=== PATIENT | female | born 1990 | race African-American/Black ===

== ENCOUNTER 2017-03-17 15:36 | Emergency (ER) | payer SELFPAY ==
[~2017-03-17] VITALS: Ht 167.6 cm; Wt 74.8 kg
[2017-03-17 15:43] VITALS: BP 130/75
== END 2017-03-17 17:17 | disposition home or self-care (01) ==
LOC: ER 15:41
DX: S16.1XXA Strain of muscle, fascia and tendon at neck level, initial encounter (principal); V59.9XXA Occupant (driver) (passenger) of pick-up truck or van injured in unspecified traffic accident, initial encounter; Y93.89 Activity, other specified; Y99.8 Other external cause status; Y92.89 Other specified places as the place of occurrence of the external cause

== ENCOUNTER 2019-06-24 09:20 | Inpatient (IN) | payer SELFPAY ==
[~2019-06-24] VITALS: Ht 167.6 cm; Wt 76.7 kg
[2019-06-24] MEDS ORDERED: SODIUM CHLORIDE 0.9% 1,000 ML IVB ONE (09:35)
[2019-06-24] MEDS ORDERED: FAMOTIDINE (10MG/ML) 2ML VL IV ONE (09:45)
[2019-06-24] MEDS ORDERED: ONDANSETRON HCL 4 MG/2 ML VIAL IV ONE (09:45)
[2019-06-24] MEDS ORDERED: MORPHINE SULF INJ 2 MG/ML SYRINGE 1ML IV ONE (09:45)
[2019-06-24 09:46] LABS: Basophils # (auto) 0 uL; Basophils % (auto) 0.5 % (0.0-2.0); Eosinophils # (auto) 0 uL; Eosinophils % (auto) 0.6 % (0.0-7.0); Hematocrit 40.2 % (36.0-46.0); Hemoglobin 13.3 g/dL (12.2-16.2); Lymphocytes # (auto) 0.5 uL; Lymphocytes % (auto) 11.1 % (10.0-50.0); Mean Corpuscular Hemoglobin 27.6 pg (28.0-32.0); Mean Corpuscular Volume 83.6 fL (80.0-100.0); Monocytes # (auto) 0.6 uL; Monocytes % (auto) 11.6 % (0.0-12.0); Neutrophils # (auto) 3.6 uL; Neutrophils % (auto) 76.2 % (37.0-80.0); Platelet Count (auto) 197 10^3/uL (140-450); Red Blood Cells 4.81 10^6/uL (4.0-5.20); Red Cell Distribution Width 15.9 % (11.8-14.3); White Blood Cell 4.8 10^3/uL (4.4-10.8)
[2019-06-24 09:51] LABS: Urine WBC None Seen /hpf (0 - 5)
[2019-06-24 10:06] LABS: Potassium 3.8 mmol/L (3.5-5.1)
[2019-06-24 10:07] LABS: Urine Bacteria NONE SEEN /hpf (None Seen); Urine Blood Negative /uL (Negative); Urine Specific Gravity 1.004 (1.001-1.035)
[2019-06-24 10:13] LABS: Albumin 3.7 g/dL (3.4-5.0); BUN/Creatinine Ratio 7.4; Bilirubin, Total 0.3 mg/dL (0.2-1.0); Calcium 8.8 mg/dL (8.5-10.1); Total Protein 8.2 g/dL (6.4-8.2)
[2019-06-24] MEDS: SODIUM CHLORIDE 0.9% 1,000 ML IV SCH ×2 (11:40→21:34)
[2019-06-24] MEDS ORDERED: NITROGLYCERIN 0.4 MG SL TAB SL PRN (11:45)
[2019-06-24] MEDS ORDERED: LEVOFLOXACIN 500MG 100 ML IV ONE (11:45)
[2019-06-24] MEDS ORDERED: MORPHINE SULF INJ 2 MG/ML SYRINGE 1ML IV PRN (11:45)
[2019-06-24] MEDS ORDERED: ACETAMINOPHEN 500 MG TAB PO PRN (11:45)
--- NOTE | 2019-06-24 14:15 | NUR ---
Telemetry admit from ER MORENITA MICHAELS admitted to Telemetry unit after SBAR received. Patient oriented to Daisy Silverman RN, unit, room, bed, and unit policies regarding patient care and visiting hours. Patient now on continuous telemetry monitoring, tele box # 15 and telemetry reading on arrival to unit is 65 SR. Patient placed on bedside oxygen, weighed by bed scale and encouraged to call if she needs something. All questions and concerns addressed, patient verbalized understanding. Note: Patient is alert, oriented x4, no acute distress noted, ambulatory, steady gait noted.
[2019-06-24 14:20] VITALS: BP 124/74
[2019-06-24 14:25] VITALS: BP 124/74
[2019-06-24] MEDS: metroNIDAZOLE 500MG/100ML 100 ML IV SCH ×2 (14:28→22:16)
--- NOTE | 2019-06-24 14:35 | NUR ---
Humberto Garcia at bedside for GI Consult. explained to patient Colonoscopy, to be done on Thursday. Patient stated her stomach pain level tolerable at this time.
--- NOTE | 2019-06-24 14:59 | NUR ---
Patient came from the bathroom. Greenish liquid stools noted. Patient is ambulatory.
--- NOTE | 2019-06-24 15:00 | NUR ---
Stool specimen sent to Laboratory.
[2019-06-24] MEDS: traMADol HCL 50 MG TAB PO PRN ×2 (15:10→22:15)
--- NOTE | 2019-06-24 15:10 | NUR ---
Tramadol PO given for abdominal pain.
[2019-06-24 17:00] VITALS: BP 124/74
--- NOTE | 2019-06-24 17:30 | NUR ---
Family member at bedside.
[2019-06-24 22:00] VITALS: BP 124/78
[2019-06-24] MEDS: FAMOTIDINE 20 MG TAB PO SCH (22:17)
[2019-06-25 05:00] VITALS: BP_SYST 119; BP_SYST 143; BP_DIAS 67; BP_DIAS 75
[2019-06-25] MEDS: metroNIDAZOLE 500MG/100ML 100 ML IV SCH ×3 (05:42→22:30)
[2019-06-25] MEDS: SODIUM CHLORIDE 0.9% 1,000 ML IV SCH ×2 (05:43→18:10)
[2019-06-25 08:00] VITALS: BP 133/76
[2019-06-25] MEDS: FAMOTIDINE 20 MG TAB PO SCH ×2 (11:30→22:30)
[2019-06-25] MEDS: LEVOFLOXACIN 500MG 100 ML IV SCH (11:30)
[2019-06-25 11:49] VITALS: BP 119/77
[2019-06-25 17:03] VITALS: BP 120/76
--- NOTE | 2019-06-25 19:30 | NUR ---
Opening Shift Note Assumed care of patient, awake and alert. Boyfriend at bedside. No S/S of distress/SOB noted. Skin clear.Room bathroom does not have a soap dispenser or warm water at sink. Instructed on POC and to call for assist PRN, will continue to monitor for changes Q1hr and PRN.
[2019-06-25 22:00] VITALS: BP 145/79
--- NOTE | 2019-06-25 22:00 | NUR ---
IV infiltrated to R AC. Patient complaining of pain at site as well.Removed IV and placed new IV to L AC 22 Gauge. Tolerated well. Patient states she has not slept much and her roommate moans often due to discomfort as well as the patient next door yelling out often. Asked RAMAN Morales for eye mask and ear plugs and we are out at this time. Sleeping pill given
[2019-06-26] MEDS: TEMAZEPAM 15 MG CAP PO PRN ×2 (00:17→22:19)
[2019-06-26] MEDS: traMADol HCL 50 MG TAB PO PRN ×4 (00:17→22:18)
[2019-06-26] MEDS: SODIUM CHLORIDE 0.9% 1,000 ML IV SCH ×3 (03:34→23:34)
[2019-06-26 05:00] VITALS: BP 139/85
--- NOTE | 2019-06-26 06:00 | NUR ---
New IV strted to Left FA. 22 gauge and infusing fluids per orders. IV to left AC removed due to causing patient pain. No redness or swelling noted. Was going to move patient to another room last night per her request and she ended up sleeping well and didnt want to move after all. No distres at this time.
[2019-06-26] MEDS: metroNIDAZOLE 500MG/100ML 100 ML IV SCH ×3 (06:20→22:18)
[2019-06-26 06:22] LABS: Basophils # (auto) 0 uL; Basophils % (auto) 0.6 % (0.0-2.0); Eosinophils # (auto) 0.2 uL; Eosinophils % (auto) 5.9 % (0.0-7.0); Hematocrit 35.1 % (36.0-46.0); Hemoglobin 11.8 g/dL (12.2-16.2); Lymphocytes # (auto) 1.4 uL; Lymphocytes % (auto) 40.7 % (10.0-50.0); Mean Corpuscular Hemoglobin 28.1 pg (28.0-32.0); Mean Corpuscular Hgb Conc. 33.7 g/dL (32.0-36.0); Mean Corpuscular Volume 83.5 fL (80.0-100.0); Monocytes # (auto) 0.6 uL; Monocytes % (auto) 16.4 % (0.0-12.0); Neutrophils # (auto) 1.2 uL; Neutrophils % (auto) 36.4 % (37.0-80.0); Nucleated Red Blood Cells % 0.1 %; Platelet Count (auto) 169 10^3/uL (140-450); Red Cell Distribution Width 15.5 % (11.8-14.3); White Blood Cell 3.4 10^3/uL (4.4-10.8)
[2019-06-26 06:26] LABS: INR 1.01 (0.9-1.15); Partial Thromboplastin Time 30.8 sec (23.64-32.05)
[2019-06-26 06:28] LABS: Calcium 7.7 mg/dL (8.5-10.1); Potassium 3.6 mmol/L (3.5-5.1)
[2019-06-26 06:30] LABS: BUN/Creatinine Ratio 4.6
[2019-06-26 08:00] VITALS: BP 123/83
[2019-06-26 09:06] VITALS: BP 123/83
[2019-06-26] MEDS: FAMOTIDINE 20 MG TAB PO SCH ×2 (09:50→22:19)
[2019-06-26] MEDS: LEVOFLOXACIN 500MG 100 ML IV SCH (09:50)
[2019-06-26] MEDS ORDERED: GOLYTELY 4L KIT PO ONE (12:00)
[2019-06-26 13:08] VITALS: BP 130/87
--- NOTE | 2019-06-26 14:25 | NUR ---
Estimated needs based on AJBW 63.5 kg for wt. maintenance 6645-7587 kcal (22-24 kcal/kg) 51-64 g protein (0.8-1.0 g/kg) Addendum: 06/26/19 at [address] Amended: Links added.
[2019-06-26 16:49] VITALS: BP 118/73
[2019-06-26] MEDS: PROMETHAZINE HCL 25 MG/ML 1ML IV PRN (17:06)
--- NOTE | 2019-06-26 19:30 | NUR ---
Opening Shift Note Assumed care of patient, awake and alert. Fiance at bedside. Drinking golytely for procedure tomorrow. Drank more than 2/3 of jug thus far, says her stool is clear yellow at this time. Aware of procedure tomorrow. No S/S of distress/SOB or pain.No nausea at this time. Instructed on POC and to call for assist PRN, will continue to monitor for changes Q1hr and PRN.
[2019-06-26 22:00] VITALS: BP 138/85
--- NOTE | 2019-06-26 22:19 | NUR ---
HAD TO WASTE HER TRAMADOL DUE TO PATIENT DROPPING IT ON THE FLOOR. PULLED NEW PILL AND GIVEN
[2019-06-27 00:25] LABS: Alcohol, Urine < 3.0 mg/dL (0-5); Amphetamine Screen, Urine NEGATIVE (NEGATIVE); Barbiturate Scree,Urine NEGATIVE (NEGATIVE); Benzodiazephine Screen, Urine NEGATIVE (NEGATIVE); Cannabinoid Screen, Urine NEGATIVE (NEGATIVE); Cocaine Screen, Urine NEGATIVE (NEGATIVE); Opiate Scree,Urine NEGATIVE (NEGATIVE); Phencyclidine Screen, Urine NEGATIVE (NEGATIVE)
[2019-06-27 05:00] VITALS: BP 125/71
[2019-06-27] MEDS: metroNIDAZOLE 500MG/100ML 100 ML IV SCH ×3 (06:40→21:51)
--- NOTE | 2019-06-27 06:55 | NUR ---
Slept well through night. No distress noted. NPO since 0000 for colonoscopy today. Almost finished golytely. Stool is clear per patient. Will endorse to am nurse. Checklist complete. Consents signed
--- NOTE | 2019-06-27 07:25 | NUR ---
Opening Shift Note Assumed care of patient, awake and alert resting quietly in bed. Patient is on room air with no S/S of distress/SOB or pain. Bed is in lowest position, wheels are locked, side rails up X2, and call light is with reach. Instructed on POC and to call for assist PRN, will continue to monitor for changes Q1hr and PRN.
[2019-06-27] MEDS ORDERED: SODIUM CHLORIDE LOCK 10 ML ONE (08:16)
[2019-06-27] MEDS ORDERED: diphenhdrAMINE HCL 50 MG/1 ML VL ONE (08:17)
[2019-06-27 09:00] VITALS: BP 131/72
--- NOTE | 2019-06-27 09:55 | NUR ---
PATIENT TRANSFERRED OFF FLOOR TO PREOP FOR PROCEDURE BY BED. PATIENT IS ALERT AND AWAKE, ON ROOM AIR WITH EVEN AND UNLABORED RESPIRATIONS WITH NO S/S OF DISTRESS/SOB AT TIME OF TRANSFER.
[2019-06-27] MEDS: FAMOTIDINE 20 MG TAB PO SCH ×2 (10:00→21:51)
[2019-06-27] MEDS: MIDAZOLAM HCL 5 MG/ML-1ML VIAL ONE ×4 (10:07→10:18)
[2019-06-27] MEDS: fentaNYL CITRATE 100 MCG/2 ML VL ONE ×4 (10:07→10:18)
[2019-06-27] MEDS: SODIUM CHLORIDE 0.9% 1,000 ML IV SCH (10:13)
--- NOTE | 2019-06-27 11:02 | NUR ---
PATIENT BACK FROM PROCEDURE PATIENT BACK FROM PROCEDURE. DR. AVALOS AT BEDSIDE EXPLAINING AGAIN WHAT HAPPENED PROCEDURE WAS ONLY PARTIAL COMPLETED. PER DR. AVALOS STATED PROCEDURE WILL BE ATTEMPTED AGAIN TOMORROW UNDER GENERAL ANESTHESIA PATIENT COULDN'T TOLERATE COMPLETION OF PROCEDURE. PATIENT VERBALIZED UNDERSTANDING. WILL CONTINUE TO MONITOR Q1H AND PRN.
[2019-06-27] MEDS: LEVOFLOXACIN 500MG 100 ML IV SCH (11:32)
[2019-06-27] MEDS: traMADol HCL 50 MG TAB PO PRN ×2 (12:42→21:52)
[2019-06-27 13:00] VITALS: BP 119/71
--- NOTE | 2019-06-27 14:21 | NUR ---
Received referral to determine if pt qualified for medi-ed. Pt is over income for medi-ed. Addendum: 06/27/19 at 1423 by MASTER DAWN Pt is over income for medi-ed.
[2019-06-27 17:00] VITALS: BP 126/65
[2019-06-27] MEDS: PROMETHAZINE HCL 25 MG/ML 1ML IV PRN (18:38)
--- NOTE | 2019-06-27 19:23 | NUR ---
Closing Note Patient awake and alert laying in bed comfortably. No S/S of distress/SOB or pain at this time. Bed is in lowest position, wheels are locked, side rails up x2, and call light is within reach. Care endorsed to Estephania GONZALEZ RN.
[2019-06-27] MEDS: TEMAZEPAM 15 MG CAP PO PRN (21:51)
[2019-06-27 22:00] VITALS: BP 118/63
[2019-06-28] MEDS: metroNIDAZOLE 500MG/100ML 100 ML IV SCH ×2 (06:00→16:44)
--- NOTE | 2019-06-28 07:40 | NUR ---
Opening Shift Note Assumed care of patient, awake and alert x4, sitting up in bed with family at bedside. No S/S of distress/SOB, no pain noted or reported. Respirations are even and unlabored on RA. Updated on POC and instructed to call for assistance as needed, pt. verbalized understanding. Bed locked in lowest position, side rails up x2, call light within reach. Will continue to monitor for changes Q1hr and PRN.
[2019-06-28 09:00] VITALS: BP 129/76
[2019-06-28] MEDS: traMADol HCL 50 MG TAB PO PRN (10:06)
[2019-06-28] MEDS: PROMETHAZINE HCL 25 MG/ML 1ML IV PRN (10:06)
[2019-06-28] MEDS: LEVOFLOXACIN 500MG 100 ML IV SCH (10:06)
[2019-06-28] MEDS: FAMOTIDINE 20 MG TAB PO SCH (10:06)
--- NOTE | 2019-06-28 11:35 | NUR ---
PATIENT TAKEN OFF THE UNIT TO PROCEDURE. NO DISTRESS AT TIME OF DEPARTURE.
[2019-06-28 12:00] VITALS: BP 124/75
[2019-06-28] MEDS ORDERED: MIDAZOLAM HCL 1MG/1ML-2 ML VIAL ONE (13:19)
[2019-06-28] MEDS ORDERED: fentaNYL CITRATE 100 MCG/2 ML VL ONE (13:19)
[2019-06-28] MEDS ORDERED: MIDAZOLAM HCL 1MG/1ML-2 ML VIAL IV ONE (14:20)
[2019-06-28] MEDS ORDERED: ONDANSETRON HCL 4 MG/2 ML VIAL IV ONE (14:20)
[2019-06-28] MEDS ORDERED: ONDANSETRON HCL 4 MG/2 ML VIAL IV PRN (14:30)
[2019-06-28] MEDS ORDERED: HYDROmorphone HCL 2 MG/ML VL IV PRN (14:30)
[2019-06-28] MEDS ORDERED: fentaNYL CITRATE 100 MCG/2 ML VL IV PRN (14:30)
--- NOTE | 2019-06-28 15:27 | NUR ---
PATIENT RETURNED TO THE FLOOR FROM PROCEDURE. NO DISTRESS NOTED.
[2019-06-28 17:00] VITALS: BP 120/74
[2019-06-28 18:44] VITALS: BP 120/74
--- NOTE | 2019-06-28 18:58 | NUR ---
Prescriptions called in to [facility] on [address] Per MD Cervantes orders: Flagyl 500 mg PO BID x7days and Levaquin 500mg PO Daily x7days.
--- NOTE | 2019-06-28 19:00 | NUR ---
CARE ENDORSED TO DICTATING MACHINE TRANSCRIBER RN
--- NOTE | 2019-06-28 19:30 | NUR ---
Opening Shift Note Assumed care of patient, awake and alert. No S/S of distress/SOB or pain. Insructed on POC and to callfor assist PRN, will continue to monitor for changes Q1hr and PRN. Boyfriend at bedside. Fall and safety precautions in place. Call light within reach.
--- NOTE | 2019-06-28 19:59 | NUR ---
Discharge instructions given as ordered. Encourage to follow up with PMD as instructed. All questions and concerns addressed. Patient verbalized understanding. IV removed with catheter intact, pressure dressing applied. Telemetry unit returned to ICU. Patient ambulated self with steady gait to vehicle with all personal belongings, accompanied by family member. No distress noted at time of departure.
== END 2019-06-28 19:59 | disposition home or self-care (01) | DRG 392 ==
LOC: ER 09:22 → TELE 09:23 → TELE-WESTW 14:19 → WEST WING 06-27 12:44
PROVIDERS: ADMIT Internal Medicine; ATTEND Internal Medicine
PROC: 0DBG8ZX Excision of Left Large Intestine, Via Natural or Artificial Opening Endoscopic, Diagnostic (ICD-10-PCS; 2019-06-27)
PROC: 0DJD8ZZ Inspection of Lower Intestinal Tract, Via Natural or Artificial Opening Endoscopic (ICD-10-PCS; principal; 2019-06-28 14:20)
DX: K52.9 Noninfective gastroenteritis and colitis, unspecified (principal); F12.90 Cannabis use, unspecified, uncomplicated; R00.1 Bradycardia, unspecified; F32.9 Major depressive disorder, single episode, unspecified; Z80.3 Family history of malignant neoplasm of breast; Z86.61 Personal history of infections of the central nervous system; Z87.09 Personal history of other diseases of the respiratory system; Z88.1 Allergy status to other antibiotic agents
CPT/HCPCS: 36415; 45378; 45380; 74176; 80048; 80053; 80307; 81001; 81025; 82150; 83690; 84443; 84484; 84702; 85025; 85610; 85652; 85730; 86141; 86850; 86900; 86901; 87045; 87493; 87899; 93005; 94761; 96365; 96375; G0378; J1956; J2250; J2405; J3490

== ENCOUNTER 2022-02-26 02:58 | Emergency (ER) | payer OTHER ==
[~2022-02-26] VITALS: Ht 167.6 cm; Wt 90.7 kg
[2022-02-26] MEDS ORDERED: ALBU108A5 IN (05:20)
[2022-02-26 05:25] VITALS: BP 132/80
[2022-02-26] MEDS ORDERED: ALBUTEROL SULF HFA 90MCG INH 200DOSE IN SCH (10:00)
== END 2022-02-26 05:47 | disposition home or self-care (01) ==
LOC: ER 02:58
DX: J45.909 Unspecified asthma, uncomplicated (principal)

== ENCOUNTER 2024-07-25 22:30 | Observation (INO) | payer OTHER ==
[~2024-07-25] VITALS: Ht 172.7 cm; Wt 90.7 kg
[~2024-07-25 22:30] MED LIST: ALBU108A5 IN
[2024-07-25 23:27] LABS: Basophils # (auto) 0.1 10 ^3/uL (0-0.2); Basophils % (auto) 0.7 % (0.0-2.0); Eosinophils # (auto) 0.2 10 ^3/uL (0-0.8); Eosinophils % (auto) 1.9 % (0.0-7.0); Hematocrit 35.9 % (36.0-46.0); Hemoglobin 12.7 g/dL (12.2-16.2); Lymphocytes # (auto) 1.8 10 ^3/uL (0.4-5.4); Lymphocytes % (auto) 22.3 % (10.0-50.0); Mean Corpuscular Hemoglobin 31.3 pg (28.0-32.0); Mean Corpuscular Hgb Conc. 35.4 g/dL (32.0-36.0); Mean Corpuscular Volume 88.3 fL (80.0-100.0); Monocytes # (auto) 0.6 10 ^3/uL (0-1.3); Monocytes % (auto) 7.2 % (0.0-12.0); Neutrophils # (auto) 5.5 10 ^3/uL (1.6-8.6); Neutrophils % (auto) 67.9 % (37.0-80.0); Nucleated Red Blood Cells % 0.2 %; Platelet Count (auto) 216 10^3/uL (140-450); Red Blood Cells 4.07 10^6/uL (4.0-5.20); Red Cell Distribution Width 13.7 % (11.8-14.3); White Blood Cell 8.1 10^3/uL (4.4-10.8)
[2024-07-25 23:46] LABS: Alanine Aminotransferase 10 U/L (7-40); Albumin 3.9 g/dL (3.2-4.8); Alkaline Phosphatase 49 U/L (46-116); Anion Gap 7 (5-15); Aspartate Aminotransferase < 8 U/L (13-40); BUN/Creatinine Ratio 9.1 (10.0-20.0); Bilirubin, Total 0.3 mg/dL (0.2-1.0); Blood Urea Nitrogen 5 mg/dL (9-23); Calcium 9.5 mg/dL (8.7-10.4); Carbon Dioxide 21 mmol/L (20-30); Chloride 108 mmol/L (98-107); Glucose 99 mg/dL (74-106); Potassium 3.8 mmol/L (3.5-5.1); Sodium 136 mmol/L (136-145); Total Protein 6.3 g/dL (5.7-8.2)
[2024-07-25] MEDS: SODIUM CHLORIDE 0.9% 500 ML IV ONE (23:59)
[2024-07-26] MEDS: SODIUM CHLORIDE 0.9% 1,000 ML IV SCH (02:41)
== END 2024-07-26 01:17 | disposition home or self-care (01) ==
LOC: LDRP 22:30
PROVIDERS: ADMIT Obstetrics & Gynecology; ATTEND Obstetrics & Gynecology
DX: O26.892 Other specified pregnancy related conditions, second trimester (principal); R55 Syncope and collapse; R42 Dizziness and giddiness; O46.92 Antepartum hemorrhage, unspecified, second trimester; Z3A.21 21 weeks gestation of pregnancy; Z88.0 Allergy status to penicillin; Z79.899 Other long term (current) drug therapy
CPT/HCPCS: 36415; 59025; 76815; 80053; 81002; 82948; 82962; 84443; 85025; 86850; 86900; 86901; 94760; 96360; 96361; G0378

== ENCOUNTER → 2024-09-13 | Outpatient (CLI) | payer OTHER | END | disposition home or self-care (01) | LOC: LAB 11:18 | PROVIDERS: ATTEND Obstetrics & Gynecology | DX: Z34.00 Encounter for supervision of normal first pregnancy, unspecified trimester (principal) | CPT/HCPCS: 86850; 86900; 86901 ==

== ENCOUNTER 2024-10-28 17:05 | Emergency (ER) | payer OTHER ==
[~2024-10-28] VITALS: Ht 170.2 cm; Wt 95.3 kg
[2024-10-28 17:15] VITALS: BP 125/69; PULSE 88; RESP 20; O2SAT 95
[2024-10-28] MEDS ORDERED: SODIUM CHLORIDE 0.9% 1,000 ML IV ONE (18:00)
[2024-10-28] MEDS ORDERED: ONDANSETRON ODT 4 MG TAB PO ONE (18:00)
[2024-10-28] MEDS ORDERED: ACETAMINOPHEN 325 MG TAB PO ONE (18:00)
[2024-10-28 18:40] LABS: Basophils # (auto) 0 10 ^3/uL (0-0.2); Basophils % (auto) 0.3 % (0.0-2.0); Eosinophils # (auto) 0.2 10 ^3/uL (0-0.8); Eosinophils % (auto) 2.6 % (0.0-7.0); Hematocrit 40.3 % (36.0-46.0); Lymphocytes # (auto) 1.5 10 ^3/uL (0.4-5.4); Lymphocytes % (auto) 21.1 % (10.0-50.0); Mean Corpuscular Hemoglobin 30.9 pg (28.0-32.0); Mean Corpuscular Hgb Conc. 34.7 g/dL (32.0-36.0); Mean Corpuscular Volume 89.1 fL (80.0-100.0); Monocytes # (auto) 0.7 10 ^3/uL (0-1.3); Neutrophils # (auto) 4.9 10 ^3/uL (1.6-8.6); Nucleated Red Blood Cells % 0.1 %; Platelet Count (auto) 241 10^3/uL (140-450); Red Blood Cells 4.52 10^6/uL (4.0-5.20); Red Cell Distribution Width 13.2 % (11.8-14.3); White Blood Cell 7.3 10^3/uL (4.4-10.8)
[2024-10-28 19:03] LABS: Alanine Aminotransferase 15 U/L (7-40); Albumin 4.2 g/dL (3.2-4.8); Anion Gap 10 (5-15); BUN/Creatinine Ratio 9.5 (10.0-20.0); Bilirubin, Total 0.5 mg/dL (0.2-1.0); Calcium 9.6 mg/dL (8.7-10.4); Carbon Dioxide 22 mmol/L (20-31); Chloride 105 mmol/L (98-107); Lipase 37 U/L (12-53); Potassium 4.2 mmol/L (3.5-5.1); Sodium 137 mmol/L (136-145); Total Protein 6.8 g/dL (5.7-8.2)
[2024-10-28 19:06] LABS: Alkaline Phosphatase 121 U/L (46-116); Aspartate Aminotransferase 11 U/L (13-40); Blood Urea Nitrogen 6 mg/dL (9-23); Glucose 71 mg/dL (74-106)
[2024-10-28 21:59] LABS: Urine Bacteria MANY /hpf (None Seen); Urine Blood Negative /uL (Negative); Urine Clarity Turbid (Clear); Urine Color Light-Yellow (Yellow); Urine Hyaline Cast FEW /lpf (0 - 2); Urine Mucus FEW (None Seen); Urine Protein, UAD TRACE (Negative); Urine Urobilinogen Normal (Negative); Urine WBC 9 /hpf (0 - 5); Urine pH 5.5 (5.0-9.0)
--- NOTE | 2024-10-29 00:33 | ED.PDOC ---
History of Present Illness HPI Comments This patient is a pleasant but morbidly obese 34-year-old female who arrives to the ED today for evaluation of flu-like symptoms including nausea, vomiting, diarrhea, cough with congestion as well as diffuse intermittent ivzdgzwv-bb-wfluzn belly pain for the past few days. Patient states she is 35 weeks . Patient denies any recent travel or new food sources. Patient denies any ill contacts. Patient's vital signs were stable at arrival. Chief Complaint: Flu like Time Seen by MD: 17:37 Primary Care Provider: DR. WRIGHT Reviewed Notes: Nurses Notes Allergies: Coded Allergies: Amoxicillin (Verified Adverse Reaction, Unknown, 06/24/19) GIVES YEAST INFECTION Home Meds Active Scripts Albuterol Sulfate (Albuterol Sulfate Hfa) 108 Mcg/Act Aer, 108 MCG IN Q4HP PRN for 20 Days, #1 AER 2 Refills Prov:ROGER BECK MD 02/26/22 Information Source: Patient Mode of Arrival: Ambulatory Severity: Moderate Timing: Days Duration: Since onset Prehospital treatment: None Past Medical History PAST MEDICAL HISTORY: Asthma Past Medical History (Other): Patient states she is currently 35 weeks Surgical History: Denies all surgeries CREDIT REPORTING CLERK History: No Pertinent CREDIT REPORTING CLERK History Family History Family History: Reviewed,noncontributory to illness Social History Smoker: Non-Smoker Alcohol: Denies ETOH Use Drugs: Denies Drug Use Lives In: Home Constitutional: reports: weakness; denies: chills, diaphoresis, fatigue, fever, malaise, sweats, others EENTM: denies: blurred vision, double vision, ear bleeding, ear discharge, ear drainage, ear pain, ear ringing, eye pain, eye redness, hearing loss, mouth pain, mouth swelling, nasal discharge, nose bleeding, nose congestion, nose pain, photophobia, tearing, throat pain, throat swelling, voice changes, others Respiratory: reports: cough; denies: hemoptysis, orthopnea, SOB at rest, shortness of breath, SOB with excertion, stridor, wheezing, others Cardiovascular: denies: chest pain, dizzy spells, diaphoresis, Dyspnea on exertion, edema, irregular heart beat, left arm pain, lightheadedness, palpitations, PND, syncope, others Gastrointestinal: reports: abdominal pain, diarrhea, nausea, vomiting; denies: abdomen distended, blood streaked bowels, constipated, dysphagia, difficulty swallowing, hematemesis, melena, poor appetite, poor fluid intake, rectal bleeding, rectal pain, others Genitourinary: denies: abnormal vagina bleeding, burning, dyspareunia, dysuria, flank pain, frequency, hematuria, incontinence, pain, , vagina discharge, urgency, others Neurological: denies: dizziness, fainting, headache, left sided numbness, left sided weakness, numbness, paresthesia, pre-existing deficit, right sided numbness, right sided weakness, seizure, speech problems, tingling, tremors, weakness, others Musculoskeletal: denies: back pain, gout, joint pain, joint swelling, muscle pain, muscle stiffness, neck pain, others Integumetry: denies: bruises, change in color, change in hair/nails, dryness, laceration, lesions, lumps, rash, wounds, others Allergic/Immunocompromised: denies: Difficulty Healing, Frequent Infections, Hives, Itching, others Hematologic/Lymphatic: denies: anemia, blood clots, easy bleeding, easy bruising, swollen glands, others Endocrine: denies: excessive hunger, excessive sweating, excessive thirst, excessive urination, flushing, intolerance to cold, intolerance to heat, unexplained weight gain, unexplained weight loss, others Psychiatric: denies: anxiety, bipolar disorder, depression, hopeless, panic disorder, schizophrenia, sleepless, suicidal, others Physical Exam General Appearance: Moderate Distress (Patient complained of moderate distress at time of evaluation. Patient looks moderately toxic.), Obese HEENT: Normal ENT Inspection, Pharynx Normal, TMs Normal Neck: Full Range of Motion, Non-Tender, Normal, Normal Inspection Respiratory: Chest Non-Tender, Lungs Clear, No Accessory Muscle Use, No Respiratory Distress, Normal Breath Sounds Cardiovascular: No Edema, No JVD, No Murmur, No Gallop, Normal Peripheral Pulses, Regular Rate/Rhythm Breast Exam: Deferred Gastrointestinal: Other (Patient complains of diffuse abdominal tenderness to palpation throughout. appreciated. No signs of trauma. No pulsatile masses.) Genitalia: Deferred Pelvic: Deferred Rectal: Deferred Extremities: No calf tenderness, Normal capillary refill, Normal inspection, Normal range of motion, Non-tender, No pedal edema Neurologic: Alert, No Motor Deficits, Normal Affect, No Sensory Deficits Cerebellar Function: Normal Reflexes: Normal Skin: Dry, Normal Color, Warm Lymphatic: No Adenopathy Was a procedure done? Was a procedure done?: No Differential Dx Considerations may include: Influenza a/B cup COVID-19, UTI, sepsis, viral illness, electrolyte abnormality, X-Ray, Labs, Meds, VS Vital Signs Date Time Temp Pulse Resp B/P (MAP) Pulse Ox O2 Delivery O2 Flow Rate FiO2 10/28/24 17:15 98.3 88 20 125/69 (87) 95 Lab Test 10/28/24 21:50 10/28/24 18:12 Range/Units Urine Color Light-yellow Yellow Urine Clarity Turbid H Clear Urine pH 5.5 5.0-9.0 Urine Specific [place] 1.020 1.001-1.035 Urine Protein Trace H Negative Urine Ketones 1+ H Negative Urine Blood Negative Negative /uL Urine Nitrite Negative Negative Urine Bilirubin Negative Negative Urine Urobilinogen Normal Negative mg/dL Urine Leukocyte Esterase Negative Negative /uL Urine RBC 2 0 - 4 /hpf Urine WBC 9 0 - 5 /hpf Urine Squamous Epithelial Cells Few <5 /hpf Urine Bacteria Many H None Seen /hpf Urine Hyaline Casts Few 0 - 2 /lpf Urine Mucus Few None Seen Urine Glucose Normal Normal mg/dL White Blood Count 7.3 4.4-10.8 10^3/uL Red Blood Count 4.52 4.0-5.20 10^6/uL Hemoglobin 14.0 12.2-16.2 g/dL Hematocrit 40.3 36.0-46.0 % Mean Corpuscular Volume 89.1 80.0-100.0 fL Mean Corpuscular Hemoglobin 30.9 28.0-32.0 pg Mean Corpuscular Hemoglobin Concent 34.7 32.0-36.0 g/dL Red Cell Distribution Width 13.2 11.8-14.3 % Platelet Count 241 140-450 10^3/uL Mean Platelet Volume 7.7 6.9-10.8 fL Neutrophils (%) (Auto) 67.0 37.0-80.0 % Lymphocytes (%) (Auto) 21.1 10.0-50.0 % Monocytes (%) (Auto) 9.0 0.0-12.0 % Eosinophils (%) (Auto) 2.6 0.0-7.0 % Basophils (%) (Auto) 0.3 0.0-2.0 % Neutrophils # (Auto) 4.9 1.6-8.6 10 ^3/uL Lymphocytes # (Auto) 1.5 0.4-5.4 10 ^3/uL Monocytes # (Auto) 0.7 0-1.3 10 ^3/uL Eosinophils # (Auto) 0.2 0-0.8 10 ^3/uL Basophils # (Auto) 0 0-0.2 10 ^3/uL Nucleated Red Blood Cells 0.1 % Sodium Level 137 136-145 mmol/L Potassium Level 4.2 3.5-5.1 mmol/L Chloride Level 105 98-107 mmol/L Carbon Dioxide Level 22 20-31 mmol/L Anion Gap 10 5-15 Blood Urea Nitrogen 6 L 9-23 mg/dL Creatinine 0.63 0.550-1.02 mg/dL Glomerular Filtration Rate Calc 121 >90 mL/min BUN/Creatinine Ratio 9.5 L 10.0-20.0 Serum Glucose 71 L 74-106 mg/dL Lactic Acid Level 0.6 0.4-2.0 mmol/L Calcium Level 9.6 8.7-10.4 mg/dL Total Bilirubin 0.5 0.2-1.0 mg/dL Aspartate Amino Transferase (AST) 11 L 13-40 U/L Alanine Aminotransferase (ALT) 15 7-40 U/L Alkaline Phosphatase 121 H 46-116 U/L Total Protein 6.8 5.7-8.2 g/dL Albumin 4.2 3.2-4.8 g/dL Lipase 37 12-53 U/L X-Ray, Labs, Meds, VS Comment All studies performed the ED were evaluated by me personally. Serum laboratories and urine were unremarkable for any acute process. Swabs and some treatment were pending. When I contacted treatment nursing, they stated the patient had eloped from the facility. Time of 1ST Reevaluation: 00:31 Reevaluation 1ST: Unchanged Consultation: PCP, size painter Patient Education/Counseling: Diagnosis, Treatment Family Education/Counseling: Diagnosis, Treatment Departure 1 Departure Time of Disposition: 00:32 Impression: Primary Impression: Viral illness Disposition: 07 LEFT AWOL/ELOPED Condition: Fair Discharged With: Self Critical Care Note Critical Care Time?: No Stability Stability form required: No Heart Score Heart Score: Heart Score Response (Comments) Value History N/A 0 EKG N/A 0 Age N/A 0 Risk Factors N/A 0 Troponin N/A 0 Total 0 ROGER KILPATRICK PAC Oct 29, 2024 00:33
== END 2024-10-29 00:06 | disposition left against medical advice (07) ==
LOC: ER 17:05
DX: O98.513 Other viral diseases complicating pregnancy, third trimester (principal); O99.213 Obesity complicating pregnancy, third trimester; B34.9 Viral infection, unspecified; J45.909 Unspecified asthma, uncomplicated; Z88.0 Allergy status to penicillin; Z3A.35 35 weeks gestation of pregnancy
CPT/HCPCS: 36415; 80053; 81001; 83605; 83690; 85025

== ENCOUNTER → 2024-11-01 | Outpatient (CLI) | payer OTHER ==
[2024-11-01 12:22] LABS: Basophils # (auto) 0 10 ^3/uL (0-0.2); Basophils % (auto) 0.2 % (0.0-2.0); Eosinophils # (auto) 0.1 10 ^3/uL (0-0.8); Eosinophils % (auto) 2.2 % (0.0-7.0); Hematocrit 38.7 % (36.0-46.0); Hemoglobin 13.5 g/dL (12.2-16.2); Lymphocytes # (auto) 1.2 10 ^3/uL (0.4-5.4); Mean Corpuscular Hemoglobin 31.2 pg (28.0-32.0); Mean Corpuscular Hgb Conc. 34.8 g/dL (32.0-36.0); Mean Corpuscular Volume 89.4 fL (80.0-100.0); Monocytes # (auto) 0.5 10 ^3/uL (0-1.3); Monocytes % (auto) 8.8 % (0.0-12.0); Neutrophils # (auto) 4.2 10 ^3/uL (1.6-8.6); Neutrophils % (auto) 68.8 % (37.0-80.0); Platelet Count (auto) 219 10^3/uL (140-450); Red Blood Cells 4.33 10^6/uL (4.0-5.20); Red Cell Distribution Width 13.1 % (11.8-14.3); White Blood Cell 6.1 10^3/uL (4.4-10.8)
[2024-11-02 08:07] LABS: RPR Non Reactive (Non Reactive)
[2024-11-03 17:06] LABS: Chlamydia Trachomatis, NAA Negative (Negative); Neisseria gonorrhoeae, NAA Negative (Negative)
== END | disposition home or self-care (01) ==
LOC: LAB 11:33
PROVIDERS: ATTEND Obstetrics & Gynecology
DX: Z34.80 Encounter for supervision of other normal pregnancy, unspecified trimester (principal)
CPT/HCPCS: 36415; 85025; 86592

== ENCOUNTER 2024-11-26 04:09 | Inpatient (IN) | payer OTHER ==
--- NOTE | 2024-11-25 11:48 | DVHHP ---
ADMIT DATE: 11/26/2024 CHIEF COMPLAINT: Desires repeat section. HISTORY OF PRESENT ILLNESS: The patient is a 34-year-old 2, para 1 with EDC 12/03, estimated gestational age of 39 weeks, admitted for repeat section. The patient had previous section x 1. She wishes to undergo the same procedure. PAST MEDICAL HISTORY: None. PAST SURGICAL HISTORY: . SOCIAL HISTORY: None. FAMILY HISTORY: None. OBSTETRIC AND GYNECOLOGIC HISTORY: One section. REVIEW OF SYSTEMS: Consistent with HPI. ALLERGIES: No known drug allergies. PHYSICAL EXAMINATION: VITAL SIGNS: Stable, afebrile. HEENT: Within normal limits. CARDIOVASCULAR: Regular rate and rhythm. LUNGS: Clear to auscultation. BREASTS: Symmetrical. No masses. ABDOMEN: Gravid. Positive heart. PELVIC: Deferred. EXTREMITIES: No clubbing, cyanosis or edema. IMPRESSION: * Term with previous section. * Desires repeat section. * Morbid obesity. PLAN: Repeat section. Informed consent obtained. Risks, complication of surgery including infection, bleeding, hematoma formation, injury to bowel, bladder, surrounding organs, possibility of DVT, pulmonary embolism, risk of anesthesia discussed with the patient. Options reviewed. All questions answered. The patient fully understands. She wishes to proceed with planned procedure. DO JACKI Acuña/SAILAJA TID: [id number] RECEIPT: [id number]
[2024-11-25 11:55] LABS: Urine Bacteria FEW /hpf (None Seen); Urine Blood Negative /uL (Negative); Urine Clarity Clear (Clear); Urine Color Yellow (Yellow); Urine Protein, UAD Negative (Negative); Urine Specific Gravity 1.015 (1.001-1.035); Urine Squamous Epithelial Cell FEW /hpf (<5); Urine Urobilinogen Normal (Negative); Urine WBC 1 /hpf (0 - 5)
[2024-11-25 12:03] LABS: Amphetamine Screen, Urine Neg (NEGATIVE); Barbiturate Scree,Urine Neg (NEGATIVE); Benzodiazephine Screen, Urine Neg (NEGATIVE); Opiate Scree,Urine Neg (NEGATIVE); Phencyclidine Screen, Urine Neg (NEGATIVE)
[2024-11-25 12:04] LABS: Basophils # (auto) 0 10 ^3/uL (0-0.2); Basophils % (auto) 0.5 % (0.0-2.0); Cocaine Screen, Urine Neg (NEGATIVE); Eosinophils # (auto) 0.1 10 ^3/uL (0-0.8); Eosinophils % (auto) 1.4 % (0.0-7.0); Hematocrit 40.8 % (36.0-46.0); Lymphocytes # (auto) 1.3 10 ^3/uL (0.4-5.4); Lymphocytes % (auto) 20.5 % (10.0-50.0); Mean Corpuscular Hemoglobin 31.2 pg (28.0-32.0); Mean Corpuscular Hgb Conc. 34.4 g/dL (32.0-36.0); Mean Corpuscular Volume 90.5 fL (80.0-100.0); Monocytes # (auto) 0.5 10 ^3/uL (0-1.3); Monocytes % (auto) 7.7 % (0.0-12.0); Neutrophils # (auto) 4.4 10 ^3/uL (1.6-8.6); Neutrophils % (auto) 69.9 % (37.0-80.0); Nucleated Red Blood Cells % 0.1 %; Platelet Count (auto) 203 10^3/uL (140-450); Red Cell Distribution Width 14.2 % (11.8-14.3); White Blood Cell 6.3 10^3/uL (4.4-10.8)
[2024-11-25 12:06] LABS: Alanine Aminotransferase 10 U/L (7-40); Albumin 4.2 g/dL (3.2-4.8); Anion Gap 8 (5-15); Aspartate Aminotransferase 14 U/L (13-40); Calcium 9.8 mg/dL (8.7-10.4); Carbon Dioxide 22 mmol/L (20-31); Chloride 105 mmol/L (98-107); Glucose 89 mg/dL (74-106); Potassium 3.8 mmol/L (3.5-5.1); Uric Acid 4.1 mg/dL (3.1-7.8)
[2024-11-25 12:07] LABS: Bilirubin, Total 0.5 mg/dL (0.2-1.0); Total Protein 7.1 g/dL (5.7-8.2)
[2024-11-25 12:11] LABS: Alkaline Phosphatase 177 U/L (46-116); BUN/Creatinine Ratio 7.9 (10.0-20.0); Blood Urea Nitrogen < 5 mg/dL (9-23); Sodium 135 mmol/L (136-145)
[2024-11-25 12:16] LABS: Cannabinoid Screen, Urine Neg (NEGATIVE)
[2024-11-25 12:45] LABS: INR 0.92 (0.9-1.15); Partial Thromboplastin Time 28.3 SEC (24.5-34.5); Prothrombin Time 9.8 sec (9.3-11.8)
[~2024-11-26] VITALS: Ht 170.2 cm; Wt 97.1 kg
[2024-11-26] VITALS (13 sets, daily range): BP systolic 98–132; BP diastolic 52–73; PULSE 59–85; RESP 16–18; TEMP 97.9–98.7; O2SAT 96–98
[2024-11-26] MEDS ORDERED: METOCLOPRAMIDE HCL 5MG/ml INJ 2ml VIAL IV ONE (04:30)
[2024-11-26] MEDS ORDERED: BUPR200T2 PO (05:02)
[2024-11-26] MEDS: LACTATED RINGER'S 1,000 ML IV SCH (05:50)
[2024-11-26] MEDS: LACTATED RINGER'S 1,000 ML IV ONE (05:51)
[2024-11-26 06:06] LABS: RPR Non Reactive (Non Reactive)
[2024-11-26] MEDS ORDERED: IBUP-1456 PO (07:04)
[2024-11-26] MEDS ORDERED: HYDR-4072 PO (07:04)
[2024-11-26] MEDS ORDERED: DOCU-94 PO (07:04)
[2024-11-26] MEDS ORDERED: fentaNYL CITRATE 100 MCG/2 ML VL ONE (07:06)
[2024-11-26] MEDS ORDERED: MORPHINE SULF PF 5 MG/10 ML VIAL ONE (07:06)
[2024-11-26] MEDS ORDERED: KETOROLAC TROMETH 30 MG/ML 1ML VIAL ONE (07:13)
[2024-11-26] MEDS ORDERED: ONDANSETRON HCL 4 MG/2 ML VIAL ONE ×2 (07:13)
[2024-11-26] MEDS ORDERED: OXYTOCIN 10UNIT/ML 1ML VIAL ONE (07:13)
[2024-11-26] MEDS ORDERED: DexAMETHasone SOD PHOS 10MG/1ML VIAL INJ ONE (07:13)
[2024-11-26] MEDS ORDERED: hydrALAZINE HCL 20 MG/ML VL ONE (07:13)
[2024-11-26] MEDS ORDERED: GLYCOPYRROLATE 0.2 MG/ML 1ML VIAL ONE (07:14)
[2024-11-26] MEDS ORDERED: ceFAZolin 1GM/50ML 50 ML IV SCH (07:15)
[2024-11-26] MEDS ORDERED: ONDANSETRON HCL 4 MG/2 ML VIAL IV PRN ×2 (07:15→08:45)
[2024-11-26] MEDS: ceFAZolin 2 GM/D5W50ml 50 ML IV ONE (08:06)
--- NOTE | 2024-11-26 08:10 | DVHOP2 ---
Operative Report DATE OF OPERATION:11/26/24 PREOPERATIVE DIAGNOSES: [TERM PREG DESIRES RCS,PREVIOUS CSX1] POSTOPERATIVE DIAGNOSES: [SAME,NUCHAL CORD] OPERATION PERFORMED: Repeat Section FINDINGS: [B] infant. Apgars of [9] and [9]. Weight [GOOD] crying tone. [CLEAR] amniotic fluid. Placenta and three-vessel were intact. Normal tubes, ovaries, and uterus. SURGEON: Briana Hunter D.O. CLOCK AND WATCH HANDS MOUNTER: quality assurance technician, MELODY]. ANESTHESIOLOGIST: JH Chacon M.D. ANESTHESIA: [Duramorph spinal, regional]. COMPLICATIONS: [NONE]. ESTIMATED BLOOD LOSS: [800] mL. BLOOD PRODUCTS USED: [NONE]. PROCEDURE IN DETAIL: The patient was taken to the operating room, placed in sitting position, and spinal was placed without difficulty. She was then prepped and draped in a sterile fashion. A low Pfannenstiel incision was made scapel. At this point, it was carried down through the rectus fascia, nicked in the midline, and carried laterally. The rectus muscles were in the midline. Peritoneum was identified and entered with sharp dissection. Vesicouterine peritoneum was taken off the lower uterine segment. A lower uterine transverse incision was made with a scalpel down the chorionic membranes, ruptured with hemostat. Infant was in vertex position. One hand was placed in the lower uterine segment. Head was essentially delivered spontaneously. Nose and mouth were bulb suctioned. Shoulders and torso were delivered without difficulty. Again, pharynx, nose, and mouth were re-suctioned with vigorous crying tone. Cord was cut. The was handed off to the awaiting Respiratory. At this point, umbilical blood sample was taken. Placenta was removed. Uterus was exteriorized, cleared off all clots and debris, irrigated, and closed with a double layer of 0-Vicryl. The vesicouterine peritoneum was incorporated into this closure. We had complete hemostasis. EBL was [800] mL. The instrument, lap, and sponge count was correct x1. The uterus was placed back into the peritoneum. The peritoneal cavity was re-inspected and the lower uterine incision with good hemostasis. We closed the peritoneum with running continuous of 2-0 Vicryl. The Rectus Fascia was closed with 0-PDS, running continuous, looped-0. The skin was closed undermined, irrigated, and close with stepan. CONDITION: The patient's and the infant's condition is stable and but guarded. BRIANA HUNTER DO Nov 26, 2024 08:10
--- NOTE | 2024-11-26 08:13 | POSTOP ---
Post-Operative Note Post-Operative Note Preop Diagnosis IUP AT 39WKS DESIRE SRCS,PREVIOUS CSX1 Postop Diagnosis: SAME NUCHAL CORDX1 Operation performed RCS Specimen BABY BOY,APGARS 9-9,NL TUBES AND OVARIES Anesthesia: Regional Anesthesiologist: RULA Blood Loss(fluid mgmt) 800ML Surgeon Bessie Stubbs [employer]ather Goods Maker MARIBEL Implant NA Complications & Mgmt NONE Date 11/26/24 Time 08:11 BESSIE STUBBS DO Nov 26, 2024 08:13
[2024-11-26] MEDS: KETOROLAC TROMETH 30 MG/ML 1ML VIAL IV PRN (11:14)
[2024-11-26] MEDS: ceFAZolin 1GM/50ML 50 ML IV SCH (16:23)
[2024-11-26] MEDS: ACETAMINOPHEN IV 1000 MG/100ML (10MG/ML) IV PRN (21:26)
[2024-11-26 21:28] LABS: Basophils # (auto) 0 10 ^3/uL (0-0.2); Basophils % (auto) 0.3 % (0.0-2.0); Eosinophils # (auto) 0 10 ^3/uL (0-0.8); Hematocrit 35.6 % (36.0-46.0); Hemoglobin 12.3 g/dL (12.2-16.2); Lymphocytes # (auto) 1.3 10 ^3/uL (0.4-5.4); Lymphocytes % (auto) 10.5 % (10.0-50.0); Mean Corpuscular Hemoglobin 31.2 pg (28.0-32.0); Mean Corpuscular Hgb Conc. 34.7 g/dL (32.0-36.0); Mean Corpuscular Volume 90.1 fL (80.0-100.0); Monocytes % (auto) 8.1 % (0.0-12.0); Neutrophils % (auto) 81.1 % (37.0-80.0); Platelet Count (auto) 196 10^3/uL (140-450); Red Blood Cells 3.95 10^6/uL (4.0-5.20); White Blood Cell 12.4 10^3/uL (4.4-10.8)
[2024-11-27] VITALS (9 sets, daily range): BP systolic 98–117; BP diastolic 56–75; PULSE 62–89; RESP 16–20; TEMP 98–98.4; O2SAT 95–98
--- NOTE | 2024-11-27 07:38 | DVHPN2 ---
Progress Note Date Seen: Nov 27, 2024 Subjective S: Lochia minimal. Clear liquid diet well tolerated. Bell Cath d/cd, due to void. Pain relieved with analgesics. Due to pass flatus & no BM yet. w/o problem. PP BCM Plan: undecided vital signs Vital Sign Date Time Temp Pulse Resp B/P (MAP) Pulse Ox O2 Delivery O2 Flow Rate FiO2 11/27/24 05:00 98.0 62 18 112/75 (87) 97 98.0 11/26/24 19:00 Room Air Total Intake and Output 11/26/24 11/26/24 11/27/24 15:00 23:00 07:00 Output Total 800 ml Balance -800 ml medications Current Medications Medications Dose Ordered Sig/Navi Route Start Time Stop Time Status Last Admin Dose Admin Lactated Ringer's 1,000 ml @ 125 mls/hr Q8H IV 11/26/24 04:30 11/27/24 02:46 125 MLS/HR Diphenhydramine HCl 25 mg Q4HP PRN IV 11/26/24 08:45 Ondansetron HCl 4 mg Q4HP PRN IV 11/26/24 08:45 Cefazolin Sodium 50 ml @ 100 mls/hr Q8H IV 11/26/24 16:00 11/27/24 08:29 11/27/24 01:02 100 MLS/HR Docusate Calcium 240 mg DAILY PO 11/27/24 10:00 Docusate Sodium 100 mg Q12HR PO 11/27/24 10:00 Dimethicone 80 mg QID PO 11/27/24 12:00 Ibuprofen 800 mg Q8HP PRN PO 11/27/24 06:45 Acetaminophen/ Hydrocodone Bitart 1 tab Q4HPRN PRN PO 11/27/24 06:45 Acetaminophen/ Hydrocodone Bitart 2 tab Q4HPRN PRN PO 11/27/24 06:45 laboratory and microbiology Laboratory Tests 11/26/24 20:52 11/25/24 11:24 Test 11/25/24 11:24 Range/Units Serum Glucose 89 74-106 mg/dL Objective A&O x3 NAD. Afebrile, VSS Chest: heart and lung sounds normal. Breasts: Nipples intact w/o cracks or soreness Abdomen: normal BS, soft, non-tender, no rebound or guarding, fundus firm @ U- 1, Lower abdominal Incision site with Sylke dressing on, same clean, dry and intact. No edema, erythema or induration Extremities: no edema or tenderness Lochia - minimal Assessment/Plan 34yo now Post operative & ppd # 1 s/p Repeat Section doing well. Blood Type: O Rh: Negative. Needs Rho D prophylaxis Breast feeding Rubella non immune; will need vaccination prior to discharge Pain control with oral medications Bowel regimen: Increase fluid intake and fiber in diet, Laxative PRN Discharge Plan; On-going daily assessment will determine when patient is fit for discharge. Plan discussed with: Patient FEI ARTEAGA CNM Nov 27, 2024 07:38
[2024-11-27] MEDS: diphenhdrAMINE HCL 50 MG/1 ML VL IV PRN (09:23)
[2024-11-27] MEDS: DOCUSATE SOD 100 MG CAP PO SCH (09:24)
[2024-11-27] MEDS: SIMETHICONE 80 MG CHEWABLE TABLET PO SCH (09:24)
[2024-11-27] MEDS: DOCUSATE CALCIUM 240 MG CAP PO SCH (09:24)
[2024-11-27] MEDS: HYDROcodone-ACET 5/325MG TAB PO PRN (09:25)
[2024-11-27 09:26] LABS: Basophils # (auto) 0 10 ^3/uL (0-0.2); Basophils % (auto) 0.3 % (0.0-2.0); Eosinophils # (auto) 0.1 10 ^3/uL (0-0.8); Eosinophils % (auto) 0.7 % (0.0-7.0); Hematocrit 35.9 % (36.0-46.0); Hemoglobin 12.3 g/dL (12.2-16.2); Lymphocytes # (auto) 2.6 10 ^3/uL (0.4-5.4); Lymphocytes % (auto) 24.5 % (10.0-50.0); Mean Corpuscular Hgb Conc. 34.4 g/dL (32.0-36.0); Mean Corpuscular Volume 90.1 fL (80.0-100.0); Monocytes # (auto) 0.9 10 ^3/uL (0-1.3); Monocytes % (auto) 8.1 % (0.0-12.0); Neutrophils % (auto) 66.4 % (37.0-80.0); Nucleated Red Blood Cells % 0.2 %; Platelet Count (auto) 186 10^3/uL (140-450); Red Blood Cells 3.98 10^6/uL (4.0-5.20); Red Cell Distribution Width 14.1 % (11.8-14.3); White Blood Cell 10.6 10^3/uL (4.4-10.8)
[2024-11-27] MEDS: SODIUM CITR/CITRIC ACID ORAL SOLN 30 ML PO ONE (09:56)
[2024-11-27] MEDS: LACT. RINGERS/OXYTOCIN 20UNITS 1,000 ML IV ONE (09:57)
[2024-11-27] MEDS: IBUPROFEN 800 MG TAB PO PRN (12:41)
[2024-11-27] MEDS: RHO (D) IMMUNE GLOBULIN 300 MCG INJ IM ONE (12:43)
[2024-11-27] MEDS: buPROPion HCL 75 MG TAB PO SCH (19:52)
[2024-11-27] MEDS: HYDROmorphone HCL 2 MG/ML VL/or syr IV ONE (22:41)
--- NOTE | 2024-11-28 01:46 | DVHPN2 ---
Progress Note Date Seen: Nov 28, 2024 Subjective S: Lochia minimal. Regular diet well tolerated. Ambulating and voiding well w/o feeling dizzy or lightheaded. Pain relieved with analgesics. Passing flatus but no BM yet. and formula-feeding w/o problem Desires & Requests to be discharged tomorrow vital signs Vital Sign Date Time Temp Pulse Resp B/P (MAP) Pulse Ox O2 Delivery O2 Flow Rate FiO2 11/27/24 23:11 74 20 117/67 11/27/24 23:02 98.4 98 98.4 11/27/24 19:00 Room Air Total Intake and Output 11/27/24 11/27/24 11/28/24 15:00 23:00 07:00 Output Total 1400 ml 900 ml Balance -1400 ml -900 ml medications Current Medications Medications Dose Ordered Sig/Navi Route Start Time Stop Time Status Last Admin Dose Admin Lactated Ringer's 1,000 ml @ 125 mls/hr Q8H IV 11/26/24 04:30 11/27/24 02:46 125 MLS/HR Diphenhydramine HCl 25 mg Q4HP PRN IV 11/26/24 08:45 11/27/24 09:23 25 MG Ondansetron HCl 4 mg Q4HP PRN IV 11/26/24 08:45 Docusate Calcium 240 mg DAILY PO 11/27/24 10:00 11/27/24 09:24 240 MG Docusate Sodium 100 mg Q12HR PO 11/27/24 10:00 11/27/24 22:14 100 MG Dimethicone 80 mg QID PO 11/27/24 12:00 11/27/24 22:14 80 MG Ibuprofen 800 mg Q8HP PRN PO 11/27/24 06:45 11/27/24 22:14 800 MG Acetaminophen/ Hydrocodone Bitart 1 tab Q4HPRN PRN PO 11/27/24 06:45 Acetaminophen/ Hydrocodone Bitart 2 tab Q4HPRN PRN PO 11/27/24 06:45 11/28/24 01:22 2 TAB Bupropion HCl 150 mg BID PO 11/27/24 22:00 11/27/24 19:52 150 MG laboratory and microbiology Laboratory Tests 11/27/24 08:31 11/25/24 11:24 Test 11/25/24 11:24 Range/Units Serum Glucose 89 74-106 mg/dL Objective O: A&O x3 NAD. Afebrile, VSS Chest: heart and lung sounds normal. Breasts: Nipples intact w/o cracks or soreness Abdomen: normal BS, soft, non-tender, no rebound or guarding, fundus firm @ U- 1, Lower abdominal Incision site with Sylke on, same clean, dry and intact. No edema, erythema or induration Extremities: no edema or tenderness Lochia - minimal Assessment/Plan 34 yo now Post operative & ppd #2 s/p Repeat Section doing well. Blood Type: O Rh: Negative; had RhoD Breast feeding and Formula feeding Rubella non immune Pain control with oral medications Bowel regimen: Increase fluid intake and fiber in diet, Laxative PRN PP BCM Plan: undecided Discharge plan: May discharge home tomorrow if condition remains stable Plan discussed with: Patient SAY ARTEAGAZABETH Halley PALMA Nov 28, 2024 01:46
[2024-11-28 03:14] VITALS: BP 119/78; PULSE 68; RESP 16; TEMP 97.8; O2SAT 96
[2024-11-28 06:49] VITALS: BP 120/83; PULSE 73; RESP 18; TEMP 98.1; O2SAT 97
--- NOTE | 2024-11-28 09:08 | DVHDS2 ---
Discharge Summary Date of Admission Nov 26, 2024 at 04:09 Date of Discharge: Nov 28, 2024 Admitting Diagnosis Term IUP, previous c/section Labs/Diagnostic Data: Laboratory Results Test 11/27/24 08:31 11/25/24 11:24 White Blood Count 10.6 10^3/uL (4.4-10.8) Red Blood Count 3.98 10^6/uL (4.0-5.20) Hemoglobin 12.3 g/dL (12.2-16.2) Hematocrit 35.9 % (36.0-46.0) Mean Corpuscular Volume 90.1 fL (80.0-100.0) Mean Corpuscular Hemoglobin 31.0 pg (28.0-32.0) Mean Corpuscular Hemoglobin Concent 34.4 g/dL (32.0-36.0) Red Cell Distribution Width 14.1 % (11.8-14.3) Platelet Count 186 10^3/uL (140-450) Mean Platelet Volume 8.6 fL (6.9-10.8) Neutrophils (%) (Auto) 66.4 % (37.0-80.0) Lymphocytes (%) (Auto) 24.5 % (10.0-50.0) Monocytes (%) (Auto) 8.1 % (0.0-12.0) Eosinophils (%) (Auto) 0.7 % (0.0-7.0) Basophils (%) (Auto) 0.3 % (0.0-2.0) Neutrophils # (Auto) 7.0 10 ^3/uL (1.6-8.6) Lymphocytes # (Auto) 2.6 10 ^3/uL (0.4-5.4) Monocytes # (Auto) 0.9 10 ^3/uL (0-1.3) Eosinophils # (Auto) 0.1 10 ^3/uL (0-0.8) Basophils # (Auto) 0 10 ^3/uL (0-0.2) Nucleated Red Blood Cells 0.2 % Prothrombin Time 9.8 sec (9.3-11.8) Prothrombin Time INR 0.92 (0.9-1.15) Activated Partial Thromboplast Time 28.3 SEC (24.5-34.5) Urine Color Yellow (Yellow) Urine Clarity Clear (Clear) Urine pH 7.0 (5.0-9.0) Urine Specific [place] 1.015 (1.001-1.035) Urine Protein Negative (Negative) Urine Ketones Negative (Negative) Urine Blood Negative /uL (Negative) Urine Nitrite Negative (Negative) Urine Bilirubin Negative (Negative) Urine Urobilinogen Normal mg/dL (Negative) Urine Leukocyte Esterase Negative /uL (Negative) Urine RBC <1 /hpf (0 - 4) Urine WBC 1 /hpf (0 - 5) Urine Squamous Epithelial Cells Few /hpf (<5) Urine Bacteria Few /hpf (None Seen) Urine Glucose Normal mg/dL (Normal) Sodium Level 135 mmol/L (136-145) Potassium Level 3.8 mmol/L (3.5-5.1) Chloride Level 105 mmol/L (98-107) Carbon Dioxide Level 22 mmol/L (20-31) Anion Gap 8 (5-15) Blood Urea Nitrogen < 5 mg/dL (9-23) Creatinine 0.63 mg/dL (0.550-1.02) Glomerular Filtration Rate Calc 121 mL/min (>90) BUN/Creatinine Ratio 7.9 (10.0-20.0) Serum Glucose 89 mg/dL (74-106) Uric Acid 4.1 mg/dL (3.1-7.8) Calcium Level 9.8 mg/dL (8.7-10.4) Total Bilirubin 0.5 mg/dL (0.2-1.0) Aspartate Amino Transferase (AST) 14 U/L (13-40) Alanine Aminotransferase (ALT) 10 U/L (7-40) Alkaline Phosphatase 177 U/L (46-116) Total Protein 7.1 g/dL (5.7-8.2) Albumin 4.2 g/dL (3.2-4.8) Urine Opiates Screen Neg (NEGATIVE) Urine Fentanyl Screen Neg (NEGATIVE) Urine Barbiturates Screen Neg (NEGATIVE) Urine Phencyclidine Screen Neg (NEGATIVE) Urine Amphetamines Screen Neg (NEGATIVE) Urine Benzodiazepines Screen Neg (NEGATIVE) Urine Cocaine Screen Neg (NEGATIVE) Urine Cannabinoids Screen Neg (NEGATIVE) Rapid Plasma Reagin Non reactive (Non Reactive) Hepatitis C Antibody Negative (Negative) Other Laboratory Tests 11/27/24 08:31 11/25/24 11:24 Brief Hx & Hospital Course: Scheduled repeat C/S, no trial of labor Uneventful surgery and post op recovery WNL Discharged in stable condition. Operations or Procedures Repeat low transv c/section Condition at Discharge: Stable Final Diagnosis/Problems List s/p C/Section Discharge Disposition: Home Discharge Instruct/Medications Diet: Regular Activity: Light activity Activity comment: Pelvic rest x 6 weeks Follow Up/Referral: [address] Stubbs Medications: see eRx Discharge Statement: "Patient was advised to return to the ER or call 911 if any headaches, dizziness, shortness of breath, chest pain, abdominal pain, bleeding, fevers, or worsening of medical condition. Patient was counseled about treatment plan, medications, possible side effects, patientverbalized understanding. All questions were answered to the best of my ability. This discharge took greater then 30 minutes in planning, reviewing documentation, counseling the patient, and discussing with other team members." ASSESSMENT ASSESSMENT Assessment s/p C/Section MAY LARIOS DO Nov 28, 2024 09:08
[2024-11-28] MEDS: HYDROcodone-ACET 5/325MG TAB PO PRN (09:37)
[2024-11-28 11:24] VITALS: BP 115/84; PULSE 80; RESP 18; TEMP 98.6; O2SAT 98
[2024-11-28 12:06] LABS: Treponema Pallidum Ab LC Non Reactive (Non Reactive)
[2024-11-29] MEDS ORDERED: HYDR-4902 PO (03:25)
[2024-11-29] MEDS ORDERED: IBUP1TAB5 PO (03:25)
== END 2024-11-28 12:15 | disposition home or self-care (01) | DRG 787 ==
LOC: LDRP 04:09
PROVIDERS: ADMIT Obstetrics & Gynecology; ATTEND Obstetrics & Gynecology
PROC: 3E0234Z Introduction of Serum, Toxoid and Vaccine into Muscle, Percutaneous Approach (ICD-10-PCS; 2024-11-26)
PROC: 10D00Z1 Extraction of Products of Conception, Low, Open Approach (ICD-10-PCS; principal; 2024-11-26 07:20)
DX: O34.211 Maternal care for low transverse scar from previous cesarean delivery (principal); R71.0 Precipitous drop in hematocrit; Z3A.39 39 weeks gestation of pregnancy; Z37.0 Single live birth; O69.81X0 Labor and delivery complicated by cord around neck, without compression, not applicable or unspecified; O26.893 Other specified pregnancy related conditions, third trimester; Z67.41 Type O blood, Rh negative
CPT/HCPCS: 36415; 59025; 80053; 80307; 81001; 81002; 84550; 85025; 85610; 85730; 86592; 86780; 86803; 86850; 86900; 86901; 90384; 94760; 96360; 96361; 96365; 96366; 96374; G0378; J0131; J1100; J1885; J2405

== ENCOUNTER 2025-05-05 22:23 | Emergency (ER) | payer OTHER ==
[~2025-05-05] VITALS: Ht 170.2 cm; Wt 98.2 kg
[~2025-05-05 22:23] MED LIST changes: +BUPR200T2 PO; +HYDR-4902 PO; +IBUP1TAB5 PO
--- NOTE | 2025-05-05 23:00 | ED.PDOC ---
Psychiatric HPI Comments 34-year-old female who came to ER for mental health issues. Patient has history of anxiety and depression. States she just gave to her second child 6 months ago and states she has been having post depression since then which has worsened the past 2 weeks with thoughts of harming herself. She denies any specific plan. Stated she had same thoughts with her first but not this severe. No auditory or visual hallucinations noted. Patient states there is not much emotional support from her partner. Chief Complaint: Mental Health Time Seen by MD: 22:59 Primary Care Provider: DR. 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 Family History Family History: Reviewed,noncontributory to illness Social History Smoker: Non-Smoker Alcohol: Denies ETOH Use Drugs: Denies Drug Use Lives In: Home Constitutional: denies: chills, diaphoresis, fatigue, fever, malaise, sweats, weakness, others EENTM: denies: blurred vision, double vision, ear bleeding, ear discharge, ear drainage, ear pain, ear ringing, eye pain, eye redness, hearing loss, mouth pain, mouth swelling, nasal discharge, nose bleeding, nose congestion, nose pain, photophobia, tearing, throat pain, throat swelling, voice changes, others Respiratory: denies: cough, hemoptysis, orthopnea, SOB at rest, shortness of breath, SOB with excertion, stridor, wheezing, others Cardiovascular: denies: chest pain, dizzy spells, diaphoresis, Dyspnea on exertion, edema, irregular heart beat, left arm pain, lightheadedness, palpitations, PND, syncope, others Gastrointestinal: denies: abdomen distended, abdominal pain, blood streaked bowels, constipated, diarrhea, dysphagia, difficulty swallowing, hematemesis, melena, nausea, poor appetite, poor fluid intake, rectal bleeding, rectal pain, vomiting, others Genitourinary: denies: abnormal vagina bleeding, burning, dyspareunia, dysuria, flank pain, frequency, hematuria, incontinence, pain, , vagina discharge, urgency, others Neurological: denies: dizziness, fainting, headache, left sided numbness, left sided weakness, numbness, paresthesia, pre-existing deficit, right sided numbness, right sided weakness, seizure, speech problems, tingling, tremors, weakness, others Musculoskeletal: denies: back pain, gout, joint pain, joint swelling, muscle p ain, muscle stiffness, neck pain, others Integumetry: denies: bruises, change in color, change in hair/nails, dryness, laceration, lesions, lumps, rash, wounds, others Allergic/Immunocompromised: denies: Difficulty Healing, Frequent Infections, Hives, Itching, others Hematologic/Lymphatic: denies: anemia, blood clots, easy bleeding, easy bruising, swollen glands, others Endocrine: denies: excessive hunger, excessive sweating, excessive thirst, excessive urination, flushing, intolerance to cold, intolerance to heat, unexplained weight gain, unexplained weight loss, others Psychiatric: reports: anxiety, depression, suicidal; denies: bipolar disorder, hopeless, panic disorder, schizophrenia, sleepless, others Physical Exam General Appearance: Mild Distress HEENT: Other (Pupils and face symmetric. Moist mucous membranes.) Neck: Full Range of Motion, Normal Inspection Respiratory: Lungs Clear, No Accessory Muscle Use, No Respiratory Distress, Normal Breath Sounds Cardiovascular: No Edema, No JVD, Regular Rate/Rhythm Breast Exam: Deferred Gastrointestinal: Non Tender, Soft Genitalia: Deferred Pelvic: Deferred Rectal: Deferred Extremities: Normal inspection, Normal range of motion, Non-tender, No pedal edema Neurologic: Alert (Oriented x4), Other (Tearful. Depressed mood. Ambulatory.) Cerebellar Function: NOT DONE Reflexes: NOT DONE Skin: Dry, Normal Color, Warm Lymphatic: NOT DONE Was a procedure done? Was a procedure done?: No Psych Differential Dx Psych. Differential Dx: Anxiety, Depression, Hopeless, Suicidal OD Differential Dx: Alcohol Abuse, Drug Overdose, Substance Abuse, Suicidal Attempt X-Ray, Labs, Meds, VS Vital Signs Date Time Temp Pulse Resp B/P (MAP) Pulse Ox O2 Delivery O2 Flow Rate FiO2 05/06/25 01:13 97.6 71 14 129/81 (97) 96 97.6 05/05/25 22:35 98.5 75 20 122/78 (93) 98 98.5 Lab Test 05/05/25 22:57 05/05/25 22:45 Range/Units White Blood Count 6.2 4.4-10.8 10^3/uL Red Blood Count 5.00 4.0-5.20 10^6/uL Hemoglobin 14.9 12.2-16.2 g/dL Hematocrit 42.9 36.0-46.0 % Mean Corpuscular Volume 85.8 80.0-100.0 fL Mean Corpuscular Hemoglobin 29.9 28.0-32.0 pg Mean Corpuscular Hemoglobin Concent 34.8 32.0-36.0 g/dL Red Cell Distribution Width 12.6 11.8-14.3 % Platelet Count 268 140-450 10^3/uL Mean Platelet Volume 8.1 6.9-10.8 fL Neutrophils (%) (Auto) 41.4 37.0-80.0 % Lymphocytes (%) (Auto) 43.4 10.0-50.0 % Monocytes (%) (Auto) 7.8 0.0-12.0 % Eosinophils (%) (Auto) 6.7 0.0-7.0 % Basophils (%) (Auto) 0.7 0.0-2.0 % Neutrophils # (Auto) 2.6 1.6-8.6 10 ^3/uL Lymphocytes # (Auto) 2.7 0.4-5.4 10 ^3/uL Monocytes # (Auto) 0.5 0-1.3 10 ^3/uL Eosinophils # (Auto) 0.4 0-0.8 10 ^3/uL Basophils # (Auto) 0 0-0.2 10 ^3/uL Nucleated Red Blood Cells 0.3 % Sodium Level 139 136-145 mmol/L Potassium Level 4.2 3.5-5.1 mmol/L Chloride Level 107 98-107 mmol/L Carbon Dioxide Level 23 20-31 mmol/L Anion Gap 9 5-15 Blood Urea Nitrogen 9 9-23 mg/dL Creatinine 0.84 0.550-1.02 mg/dL Glomerular Filtration Rate Calc 95 >90 mL/min BUN/Creatinine Ratio 10.7 10.0-20.0 Serum Glucose 96 74-106 mg/dL Calcium Level 10.0 8.7-10.4 mg/dL Total Bilirubin 0.3 0.2-1.0 mg/dL Aspartate Amino Transferase (AST) 22 <34 U/L Alanine Aminotransferase (ALT) 18 7-40 U/L Alkaline Phosphatase 67 46-116 U/L Total Protein 7.9 5.7-8.2 g/dL Albumin 4.9 H 3.2-4.8 g/dL Salicylates Level < 3.0 -30 mg/dL Acetaminophen Level < 2.0 L 10.0-20.0 UG/ML Plasma/Serum Blood Alcohol < 3.0 <10 mg/dL Urine Color Colorless Yellow Urine Clarity Clear Clear Urine pH 6.0 5.0-9.0 Urine Specific [place] 1.010 1.001-1.035 Urine Protein Negative Negative Urine Ketones Negative Negative Urine Blood Negative Negative /uL Urine Nitrite Negative Negative Urine Bilirubin Negative Negative Urine Urobilinogen Normal Negative mg/dL Urine Leukocyte Esterase Negative Negative /uL Urine RBC <1 0 - 4 /hpf Urine Microscopic WBC < 1 0-5 /HPF Urine Squamous Epithelial Cells None seen <5 /hpf Urine Bacteria Few H None Seen /hpf Urine Glucose Normal Normal mg/dL Urine Test Negative Negative Urine Opiates Screen Neg NEGATIVE Urine Fentanyl Screen Neg NEGATIVE Urine Barbiturates Screen Neg NEGATIVE Urine Phencyclidine Screen Neg NEGATIVE Urine Amphetamines Screen Neg NEGATIVE Urine Benzodiazepines Screen Neg NEGATIVE Urine Cocaine Screen Neg NEGATIVE Urine Cannabinoids Screen Neg NEGATIVE X-Ray, Labs, Meds, VS Comment 34-year-old female with a history of depression presenting complaining of severe depression and suicidal thoughts Vitals unremarkable Exam remarkable for depressed mood and tearfulness Rhythm strip independently interpreted by me: Sinus rhythm, rate 75, no ectopy. CBC, metabolic panel, Tylenol level, salicylate level, alcohol level, UA and urine drug screen unremarkable Patient is now medically cleared for tele psych evaluation. Disposition will be per tele psych recommendations. Patient endorsed to the oncoming ED physician at 6:00 a.m. pending tele psych evaluation and disposition. 0600 Patient was evaluated via video consultation by Dr. Chaves. Per Dr. Chaves, patient does not meet criteria for 5150 hold, and patient also declined voluntary psychiatric inpatient hospitalization. She is stable for discharge with Rx fluoxetine which I will prescribe. Time of 1ST Reevaluation: 22:49 Reevaluation 1ST: Unchanged Patient Education/Counseling: Diagnosis, Treatment Family Education/Counseling: No Family Present Departure 1 Departure Time of Disposition: 23:41 Impression: Primary Impression: depression Disposition: 01 HOME / SELF CARE / HOMELESS Condition: Stable Additional Instructions: Follow-up with primary doctor in 1-2 days. I have prescribed antidepressant medications per our psychiatrist's recommendations. Return to ER for persistent or worsening symptoms. e-Prescriptions Fluoxetine Hcl (Fluoxetine Hcl) 20 Mg Tab 1 TAB PO DAILY, #30 TAB 3 Refills Prov: RACQUEL BAILON MD 05/06/25 Discharged With: Spouse Critical Care Note Critical Care Time?: No Stability Stability form required: No Heart Score Heart Score: Heart Score Response (Comments) Value History N/A 0 EKG N/A 0 Age N/A 0 Risk Factors N/A 0 Troponin N/A 0 Total 0 I personally scribed for RACQUEL BAILON MD ([facility] on 05/05/25 at 23:00. Electronically submitted by Elbert Clemons ([facility]). RACQUEL BAILON MD May 05, 2025 23:00
[2025-05-05 23:06] LABS: Basophils # (auto) 0 10 ^3/uL (0-0.2); Basophils % (auto) 0.7 % (0.0-2.0); Eosinophils # (auto) 0.4 10 ^3/uL (0-0.8); Eosinophils % (auto) 6.7 % (0.0-7.0); Hematocrit 42.9 % (36.0-46.0); Hemoglobin 14.9 g/dL (12.2-16.2); Lymphocytes # (auto) 2.7 10 ^3/uL (0.4-5.4); Lymphocytes % (auto) 43.4 % (10.0-50.0); Mean Corpuscular Hemoglobin 29.9 pg (28.0-32.0); Mean Corpuscular Hgb Conc. 34.8 g/dL (32.0-36.0); Mean Corpuscular Volume 85.8 fL (80.0-100.0); Monocytes # (auto) 0.5 10 ^3/uL (0-1.3); Monocytes % (auto) 7.8 % (0.0-12.0); Neutrophils # (auto) 2.6 10 ^3/uL (1.6-8.6); Neutrophils % (auto) 41.4 % (37.0-80.0); Nucleated Red Blood Cells % 0.3 %; Platelet Count (auto) 268 10^3/uL (140-450); Red Cell Distribution Width 12.6 % (11.8-14.3); White Blood Cell 6.2 10^3/uL (4.4-10.8)
[2025-05-05 23:07] LABS: Urine Bacteria FEW /hpf (None Seen); Urine Blood Negative /uL (Negative); Urine Clarity Clear (Clear); Urine Color Colorless (Yellow); Urine Protein, UAD Negative (Negative); Urine Squamous Epithelial Cell None Seen /hpf (<5); Urine Urobilinogen Normal (Negative); Urine WBC < 1 /HPF (0-5)
[2025-05-05 23:15] LABS: Amphetamine Screen, Urine Neg (NEGATIVE); Cannabinoid Screen, Urine Neg (NEGATIVE)
[2025-05-05 23:17] LABS: Barbiturate Scree,Urine Neg (NEGATIVE); Benzodiazephine Screen, Urine Neg (NEGATIVE); Cocaine Screen, Urine Neg (NEGATIVE); Opiate Scree,Urine Neg (NEGATIVE); Phencyclidine Screen, Urine Neg (NEGATIVE)
[2025-05-05 23:26] LABS: Alanine Aminotransferase 18 U/L (7-40); Alkaline Phosphatase 67 U/L (46-116); Anion Gap 9 (5-15); Aspartate Aminotransferase 22 U/L (<34); BUN/Creatinine Ratio 10.7 (10.0-20.0); Carbon Dioxide 23 mmol/L (20-31); Chloride 107 mmol/L (98-107); Glucose 96 mg/dL (74-106); Potassium 4.2 mmol/L (3.5-5.1); Sodium 139 mmol/L (136-145); Total Protein 7.9 g/dL (5.7-8.2)
[2025-05-05 23:27] LABS: Bilirubin, Total 0.3 mg/dL (0.2-1.0)
[2025-05-05 23:32] LABS: Acetaminophen < 2.0 UG/ML (10.0-20.0); Salicylate < 3.0 mg/dL (-30)
[2025-05-05 23:34] LABS: Albumin 4.9 g/dL (3.2-4.8); Blood Alcohol < 3.0 mg/dL (<10); Blood Urea Nitrogen 9 mg/dL (9-23)
--- NOTE | 2025-05-06 05:59 | DVHINCON2 ---
Date of Service if different f: May 06, 2025 Time of Service: 05:24 Consult Consult Note PSYCHIATRY ED NEW CONSULT HPI: 34 yo f pt with PPH of depression/PPD and anxiety presents to ED BIB SELF for safety, psychiatric stabilization, and possible med initiation/optimization in setting of depression, and passive SI. Psychiatry consulted for safety evaluation and recommendations in context of current presentation Pt reports over past several weeks experiencing worsening depressed mood, hopelessness/helplessness, negative thoughts, loss of interest, decreased energy, poor sleep, amotivation, some decline in self-care, etc. Also intermittent SI over past several days that are fleeting with no plan/intent resulting in some interference with daily functioning. Identifies primary stress as some difficulty taking care of her two young infants who recently had medical issues and limited support system. Pt also with post depression as she is 5 months post . Denies HI/AVH/paranoia/catatonic/perceptual disturbances/personality changes. No overt manic, psychotic, cognitive, dissociative phenomena, panic, OCD, PTSD, or somatic symptoms noted Currently does not have active outpt MH services established at this time. Currently rx'd Wellbutrin XL 300 mg qd, denies any hx of med noncompliance Denies ETOH, THC or IDU with two young children, unemployed/homemaker, limited support system noted Unknown trauma hx. Denies FH of psych hospitalizations, suicide attempts, or completed suicides No acute medical/chronic pain issues, hx of seizures/TBI, or recent head injuries, NKDA Denies hx of SI/SIB/SA/PSG or prior psych hospitalizations/5150 holds. Denies history of violence, unprovoked aggression, or assaultive behaviors. Denies recent hx of impulsivity, attention seeking behaviors, anger outbursts, emoti onal dysregulation, mood reactivity, or engaging in risky behaviors. Denies any legal problems Currently denies SI/HI/AVH. Does not have access to firearms. Identifies self/family as PPF. No acute safety concerns noted during encounter MSE: General Appearance/Behavior: Alert and awake; appears stated age, overweight, fair grooming and hygiene; calm and cooperative, fair eye contact, no PMA/PMR Speech: coherent, rrr Thought Process: L/L/GD Thought Content: Abnormal Thoughts and Perceptions: denies dissociative symptoms Homicidality / Violent Thoughts: adamantly denies HI Suicidality: adamantly denies SI Hallucinations: denies AVTH Delusions: denies paranoia, persecutory, or grandiose delusions Obsessions /compulsions: None Judgment and Insight: fair/fair Mood & Affect: "tired" with mood-congruent, somewhat restricted but appropriate Orientation: oriented x 3 Attention/Concentration: appears intact Cognition: grossly intact Assessment: 34 yo f pt with PPH of depression/PPD and anxiety presents to ED BIB SELF for safety, psychiatric stabilization, and possible med initiation/optimization in setting of depression and passive SI. Currently denies SI/HI/AVH. Linear and appears future oriented/goal directed in thought with fair J/I. Identifies several protective factors including a desire to live, family support, etc. No hx of SI/SA/SIB or prior psych hospitalizations is reassuring. Pt medically cleared Presenting MH symptoms appear more secondary to difficulty controlling emotions and ineffective coping mechanisms in context of acute stressors / post depression related to stress of taking care of her 5 month and 2 yo daughter with limited help Does not presently show any signs of immediate danger to self/others or GD that would necessitate 5150 or involuntary psych admission. However offered voluntary psych hospitalization but pt declined. Also declined further ED observation/reevaluation. No acute safety concerns noted. Acute suicide risk appears nonexistent to relatively low Pts symptoms should be managed safely in an outpatient setting - pt currently does not have psychiatrist/therapist out in community although interested in seeking MH resources prior to d/c for psychotherapy Currently rx'd Wellbutrin XL 300 mg qd. May benefit from SSRI antidepressant to address depressive/ post symptoms that have been exacerbated prior to this admission. Primary Diagnosis: Post depression. Major Depressive disorder unspecified. Plan: Does not warrant involuntary inpatient psychiatric hospitalization or 5150 hold No acute safety concerns Pt can be safely discharged back to current residence Resume current outpatient psychotropic - med compliance emphasized Recommend d/c pt on 30 day rx for FLuoxetine 20 mg po qd Risks/benefits/alternative treatments discussed, informed consent provided by pt Supportive tx provided, discussed safety plan with pt Emphasized sleep hygiene, exercise, healthy nutrition, and social activation Encouraged mindfulness techniques (reading, walking, meditation, journaling, exercise, deep breathing) during times of stress Would benefit from establishing community MH services for psychotx/psychiatric med initiation/management please provide pt MH resources prior to discharge per pts request for psychotherapy Instructed pt to call/text [phone] or return to ED if MH symptoms worsen or new onset SI/HI upon discharge Pt verbalized understanding and is receptive to above tx plan This case was discussed with ED nurse/provider and all parties in agreement with above tx plan Arnulfo Chaves MD Plan discussed with: Patient ARNULFO CHAVES MD May 06, 2025 05:59
[2025-05-06] MEDS ORDERED: FLUO20TA42 PO (06:10)
[2025-05-06 07:32] VITALS: BP 128/78; PULSE 84; RESP 16; TEMP 98.1; O2SAT 98
== END 2025-05-06 07:34 | disposition home or self-care (01) ==
LOC: ER 22:23
DX: F53.0 Postpartum depression (principal); J45.909 Unspecified asthma, uncomplicated; Z79.899 Other long term (current) drug therapy; Z98.890 Other specified postprocedural states
CPT/HCPCS: 36415; 80053; 80307; 80320; 80329; 81001; 81025; 85025